=== PATIENT | male | born 1980 | race Caucasian/White ===

== ENCOUNTER → 2018-12-31 | Outpatient (CLI) | payer OTHER ==
--- NOTE | 2018-12-31 07:39 | US ---
EXAMINATION TYPE: US gallbladder DATE OF EXAM: 12/31/2018 COMPARISON: NONE CLINICAL HISTORY: R10.11 Right Upper Quad Pain. EXAM MEASUREMENTS: Liver Length: 12.0 cm Gallbladder Wall: 0.2 cm CBD: 0.1 cm Right Kidney: 10.7 x 5.1 x 5.0 cm Pancreas: partially obscured by bowel gas, portions visualized wnl Liver: There is increased echogenicity of the hepatic parenchyma with diminished visualization of th e portal triads most commonly relating to hepatic steatosis and limiting evaluation for underlying he patic masses. Gallbladder: wnl Evidence for sonographic Pretty's sign:no CBD: wnl Right Kidney: wnl IMPRESSION: 1. Findings suggesting mild degree hepatic steatosis. Correlate with liver function tests. 2. No sonographic evidence of cholelithiasis or acute cholecystitis.
== END | disposition home or self-care (01) ==
LOC: RADUSWWP 07:08
PROVIDERS: ATTEND Family Medicine
DX: R10.11 Right upper quadrant pain (principal); Z88.0 Allergy status to penicillin
CPT/HCPCS: 76705

== ENCOUNTER → 2019-01-10 | Outpatient (CLI) | payer MEDICARE, OTHER ==
--- NOTE | 2019-01-11 16:43 | NM ---
EXAMINATION TYPE: NM hepatobiliary w EF DATE OF EXAM: 01/10/2019 COMPARISON: NONE INDICATION: Right upper quadrant pain TECHNIQUE: After the intravenous administration of 4.9 mCi Tc 99m Mebrofenin hepatobiliary scintigrap hy is performed. Images were obtained immediately post injection. FINDINGS: There is prompt uptake and excretion of radiotracer by the liver. Extrahepatic ducts are identified at 10 minutes. The gallbladder is visualized within 10 minutes. Small bowel activity is noted within 20 minutes. At one hour 8 ounces of oral ensure plus is given to mimic CCK and gallbladder ejection fraction is c alculated at 80 %, which is elevated. (Normal >35% and <80%.). IMPRESSION: 1. Borderline biliary hyperkinesia.
== END | disposition home or self-care (01) ==
LOC: RADNMMAIN 14:29
PROVIDERS: ATTEND Family Medicine
DX: R10.11 Right upper quadrant pain (principal); Z88.0 Allergy status to penicillin
CPT/HCPCS: 78226; A9537